=== PATIENT | male | born 1950 | race Caucasian/White ===

== ENCOUNTER 2020-03-19 09:48 | Inpatient (IN) ==
--- NOTE | 2020-03-03 19:40 | PAT Medication Instructions ---
Medication Instructions Date of Service March 03, 2020 Home Medications aspirin [Aspir-81] 81 mg PO QAM atorvastatin 10 mg PO PM celecoxib [Celebrex] 200 mg PO QAM diltiazem HCl 180 mg PO QAM fenofibrate nanocrystallized 145 mg PO PM fluticasone propionate [Flonase Allergy Relief] 1 spray INTRANASAL BID glucos sul 2PGj-gtd-cecop-C-Mn [Glucosamine Chondroitin] 1 cap PO BID Centrum Men] 1 tab PO QAM omega 3-dwn-omc-fish oil [Fish Oil] 1 cap PO PM omeprazole magnesium [Prilosec OTC] 20 mg PO QAM triamterene-hydrochlorothiazid 1 cap PO QAM vitamin E 1,000 unit PO PM ASK your surgeon for instructions celecoxib [Celebrex] 200 mg PO QAM ASK your prescriber and surgeon aspirin [Aspir-81] 81 mg PO QAM STOP taking 2 weeks before surgery (or as soon as possible if surgery is within 2 weeks) glucos sul 9HGv-uhn-veild-C-Mn [Glucosamine Chondroitin] 1 cap PO BID omega 8-ris-ivd-fish oil [Fish Oil] 1 cap PO PM vitamin E 1,000 unit PO PM STOP taking 48 hours before surgery fenofibrate nanocrystallized 145 mg PO PM DO NOT take the morning of surgery Centrum Men] 1 tab PO QAM triamterene-hydrochlorothiazid 1 cap PO QAM Take morning of surgery With a small sip of water, OTHERWISE NOTHING TO EAT OR DRINK AFTER MIDNIGHT: diltiazem HCl 180 mg PO QAM fluticasone propionate [Flonase Allergy Relief] 1 spray INTRANASAL BID omeprazole magnesium [Prilosec OTC] 20 mg PO QAM Take evening before surgery atorvastatin 10 mg PO PM fluticasone propionate [Flonase Allergy Relief] 1 spray INTRANASAL BID Other Notes If you have any questions please call us at [phone] or [phone] or [phone] or [phone]
--- NOTE | 2020-03-04 09:36 | Anesthesiology Consultation ---
Date of Service March 04, 2020 Assessment & Plan (1) Encounter for pre-operative examination: Per PAT assessment on 03/04: Travel screen- Visited family in [facility] (+ social distance). No known COVID-19 positive contacts. No current COVID-19 related symptoms. No hx of COVID-19 testing in past 30 days. Surgeon arranging preop COVID testing. Chart Review Chart Review: Acceptable Risk for Surgery and Patient seen in Pre Admission Testing Teaching & Discussion Pre-Anesthesia Teaching/Discussion Notes: Instructed NPO after midnight before surgery,except medications with 15 cc of water. Medication instructions provided according to the PAT guidelines. History Surgery Operation Date: 03/19/20 11:25 Proposed Procedures p L4-S1 Decompression Fusion, Spinal Cord Monitoring - Adriel Zavala DO Height/Weight Height: 5 ft 8 in Weight: 101.7 kg Allergies Allergy/AdvReac Type Severity Reaction Status Date / Time latex Allergy Unknown RASH Verified 02/26/20 09:50 oxycodone AdvReac Nausea Verified 02/26/20 10:09 Medications Home Medications Medication Instructions Recorded Confirmed Last Taken aspirin [Aspir-81] 81 mg PO QAM 02/26/20 02/26/20 Unknown atorvastatin 10 mg PO PM 02/26/20 02/26/20 Unknown celecoxib [Celebrex] 200 mg PO QAM 02/26/20 02/26/20 Unknown diltiazem HCl 180 mg PO QAM 02/26/20 02/26/20 Unknown fenofibrate nanocrystallized 145 mg PO PM 02/26/20 02/26/20 Unknown fluticasone propionate [Flonase 1 spray INTRANASAL BID 02/26/20 02/26/20 Unknown Allergy Relief] glucos sul 8PFu-bku-dmfog-C-Mn 1 cap PO BID 02/26/20 02/26/20 Unknown [Glucosamine Chondroitin] mv,Ca,lgw-dvps-LW-lycopene 1 tab PO QAM 02/26/20 02/26/20 Unknown [Centrum Men] omega 4-anf-cry-fish oil [Fish Oil] 1 cap PO PM 02/26/20 02/26/20 Unknown omeprazole magnesium [Prilosec OTC] 20 mg PO QAM 02/26/20 02/26/20 Unknown triamterene-hydrochlorothiazid 1 cap PO QAM 02/26/20 02/26/20 Unknown vitamin E 1,000 unit PO PM 02/26/20 02/26/20 Unknown Past Medical History Medical History Degenerative disc disease GERD (gastroesophageal reflux disease) controlled Hiatal hernia Hyperlipidemia Hypertension Obesity Osteoarthritis Sleep apnea no device Throat disorder small "red spot" that ENT evaluated 2 yrs ago> benign Exercise / Class Metabolic Activity II 4-5 Yardwork/Stairs/Walk up hill Past Family History Family History Father Diabetes Mother Diabetes Sister Diabetes Sister Diabetes Past Surgical History Surgical History History of cardiac cath early s= no stents History of carpal tunnel release bilat History of colonoscopy History of esophagogastroduodenoscopy (EGD) History of repair of rotator cuff right History of tooth extraction History of total knee replacement bilat Hx of bilateral cataract extraction Past Anesthesia History No Hx of Anesthesia Complications and No Family Hx of Anesthesia Complications (except father: post-op hallucinations) History of PONV No Hx of PONV and No Hx of Motion Sickness Social History Smoking Status: Former smoker Do You Dip or Chew Tobacco: No Smoking End Date: Quit 1985 Hx Alcohol Use: Yes Alcohol type: beer alcohol intake frequency: a few times a month Hx Substance Use: No substance use type: does not use Review of Systems + chronic, dry cough unchanged x years r/t allergies. Patient denies chest pain, shortness of breath, dyspnea on exertion, fever, chills, wheezing, palpitations. Physical Exam Vital Signs VITALS BP 126/80 P 62 TEMP 98.4 SP02 96%RA RESP 16 PHYSICAL Full neck and c-spine range of motion. Full TMJ range of motion. TMD 3 finger breaths Mallampati Score 2 Dentition: missing molar, + caps on molars Lungs: clear throughout to auscultation Cardiac: regular rate and rhythm, no murmurs noted Spine: normal Carotid arteries: negative bruit Extremities: no edema Testing Laboratory Results 03/04/20 09:55 03/04/20 09:55 PT 11.0 Seconds (9.0-12.0) 03/04/20 09:55 INR 1.0 (0.9-1.1) 03/04/20 09:55 APTT 25.2 Seconds (21.0-31.0) 03/04/20 09:55 Urine Color Dark Yellow 03/04/20 Unknown Urine Appearance Clear (Clear) 03/04/20 Unknown Urine pH 7.5 (4.5-7.5) 03/04/20 Unknown Ur Specific [place] 1.023 (1.000-1.030) 03/04/20 Unknown Urine Protein Negative (Negative) 03/04/20 Unknown Urine Glucose (UA) Negative (Negative) 03/04/20 Unknown Urine Ketones Negative (Negative) 03/04/20 Unknown Urine Nitrite Negative (Negative) 03/04/20 Unknown Ur Leukocyte Esterase Negative (Negative) 03/04/20 Unknown Blood Type A Positive 03/04/20 09:55 Antibody Screen NEGATIVE 03/04/20 09:55 Electrocardiogram Date: 03/04/20 SB at 53bpm. LAD. LVH with QRS widening. Chest X-Ray Date: 03/04/20 Findings: + NAD
--- NOTE | 2020-03-04 10:38 | XRay Report ---
XR chest Pre-admission PA/Lat CLINICAL HISTORY: pat preoperative COMPARISON STUDY: 07/13/2010 FINDINGS: The bones soft tissues and hemidiaphragms are normal. The cardiomediastinal silhouette is n ormal. The lungs are clear. The pulmonary vasculature is normal. IMPRESSION: Negative chest. ACT 112: Negative or not required by law. The above report was generated using voice recognition software. It may contain grammatical, syntax or spelling errors. Electronically signed by: Sam Gamble M.D. 03/04/2020 10:37 AM
[2020-03-04 11:09] LABS: Appearance Urine Clear (Clear); Bilirubin Urine Negative (Negative); Blood Urine Negative (Negative); Color Urine Dark Yellow; Glucose Urine UA Negative (Negative); Ketones Urine Negative (Negative); Leukocyte Esterase Urine Negative (Negative); Nitrite Urine Negative (Negative); Protein Urine Negative (Negative); Specific Gravity Urine 1.023 (1.000-1.030); Urobilinogen Urine Negative (Negative); pH Urine 7.5 (4.5-7.5)
[2020-03-04 11:10] LABS: Basophils # (auto) 0.03 K/uL (0-0.2); Basophils % (auto) 0.5 %; Eosinophils # (auto) 0.27 K/uL (0-0.5); Eosinophils % (auto) 4.5 %; Hematocrit (blood only) 47.9 % (42-52); Hemoglobin 16.3 g/dL (14.0-18.0); Immature Granulocytes # (auto) 0.02 K/uL (0.00-0.02); Immature Granulocytes % (auto) 0.3 %; Lymphocytes # (auto) 1.77 K/uL (1.2-3.4); Lymphocytes % (auto) 29.4 %; Mean Corpuscular Hemoglobin 29.7 pg (25-34); Mean Corpuscular Volume 87.4 fL (80-100); Mean Platelet Volume 11.2 fL (7.4-10.4); Monocytes # (auto) 0.76 K/uL (0.11-0.59); Monocytes % (auto) 12.6 %; Neutrophils # (auto) 3.18 K/uL (1.4-6.5); Neutrophils % (auto) 52.7 %; Platelet Count 216 K/uL (130-400); RDW Coefficient of Variation 13.4 % (11.5-14.5); RDW Standard Deviation 43.2 fL (36.4-46.3); Red Blood Count 5.48 M/uL (4.7-6.1); White Blood Count 6.03 K/uL (4.8-10.8)
[2020-03-04 11:17] LABS: BUN Creatinine Ratio 21.9 (10-20); Calcium 9.5 mg/dl (8.5-10.1); Creatinine Clr Calc Pharmacy 77.1 ml/min; Est GFR (African American) 83.2; Est GFR (Non-African American) 71.8; Potassium 4.4 mmol/L (3.5-5.1)
[2020-03-04 11:19] LABS: Partial Thromboplastin Ratio 0.9; Partial Thromboplastin Time 25.2 Seconds (21.0-31.0)
--- NOTE | 2020-03-04 15:36 | Electrocardiogram Report ---
Test Reason : Blood Pressure : / mmHG Vent. Rate : 053 BPM Atrial Rate : 053 BPM P-R Int : 180 ms QRS Dur : 148 ms QT Int : 428 ms P-R-T Axes : 048 -47 -05 degrees QTc Int : 401 ms Sinus bradycardia Left axis deviation Left ventricular hypertrophy with QRS widening Abnormal ECG When compared with ECG of 13-JUL-2010 13:59, Questionable change in QRS duration Confirmed by Jimmy Camacho ([id number]) on 03/04/2020 3:36:14 PM Referred By: Adriel Zavala Confirmed By:Joshua Camacho
[~2020-03-19 09:48] MED LIST: ACETAMINOPHEN 500 MG TAB PO SCH; CEFAZOLIN 2000MG 2,000 MG/15 ML SYR IV SCH; CeleBREX 200 MG CAP PO SCH; GABAPENTIN 300 MG CAP PO SCH; LR 15ML/HR IV SCH
[2020-03-19] MEDS ORDERED: LIDOCAINE HCL 2% 2 ML VIAL/AMP(20MG/ML) INFIL ONE (10:13)
[2020-03-19] MEDS ORDERED: GLYCOPYRROLATE 0.2 MG/ML VIAL ONE (10:13)
[2020-03-19] MEDS ORDERED: NEOSTIGMINE METHYLSULFATE 1 MG/ML 10ML VIAL ONE (10:13)
[2020-03-19] MEDS ORDERED: HYDROmorphone INJ 2 MG/ML SYR/VIAL ONE (10:13)
[2020-03-19] MEDS ORDERED: DEXAMETHASONE SOD INJ 4 MG/ML VIAL ONE (10:13)
[2020-03-19] MEDS ORDERED: PROPOFOL IV EMULSION 10 MG/ML 20 ML VIAL IV ONE (10:13)
[2020-03-19] MEDS ORDERED: ONDANSETRON INJ 2 MG/ML 2 ML VIAL ONE (10:13)
[2020-03-19] MEDS ORDERED: ROCURONIUM BROMIDE 10 MG/ML 5 ML VIAL IV ONE ×2 (10:13→11:56)
[2020-03-19] MEDS ORDERED: MIDAZOLAM HCL 1 MG/ML 2ML VIAL ONE (10:13)
--- NOTE | 2020-03-19 10:44 | History & Physical Bridge Note ---
Date of Service March 19, 2020 History & Physical Bridge Note I have examined the patient, reviewed the History & Physical and in the interval since the performance of the History & Physical I have noted the following changes of clinical significance: no changes noted
--- NOTE | 2020-03-19 10:45 | History & Physical Report ---
Date of Service March 19, 2020 Assessment & Plan (1) Neurogenic claudication due to lumbar spinal stenosis: L4-S1 decompression fusion Present on Admission?: Yes History of Present Illness Chief Complaint: Back and bilateral leg pain Primary Care Provider: Chucky Travis MD This is a 70-year-old male who presents with chronic persistent back and bilateral leg pain. After failing extensive course of nonoperative care is here for surgical invention. Allergies Allergy/AdvReac Type Severity Reaction Status Date / Time latex Allergy Unknown RASH Verified 02/26/20 09:50 oxycodone AdvReac Nausea Verified 02/26/20 10:09 Home Medications Home Medications Medication Instructions Recorded Confirmed Type aspirin [Aspir-81] 81 mg PO QAM 02/26/20 03/19/20 History atorvastatin 10 mg PO PM 02/26/20 03/19/20 History celecoxib [Celebrex] 200 mg PO QAM 02/26/20 03/19/20 History diltiazem HCl 180 mg PO QAM 02/26/20 03/19/20 History fenofibrate nanocrystallized 145 mg PO PM 02/26/20 03/19/20 History fluticasone propionate [Flonase 1 spray INTRANASAL BID 02/26/20 03/19/20 History Allergy Relief] glucos sul 6TWc-pel-xwedf-C-Mn 1 cap PO BID 02/26/20 03/19/20 History [Glucosamine Chondroitin] mv,Ca,kkj-xyxz-QV-lycopene 1 tab PO QAM 02/26/20 03/19/20 History [Centrum Men] omega 1-chv-lad-fish oil [Fish Oil] 1 cap PO PM 02/26/20 03/19/20 History omeprazole magnesium [Prilosec OTC] 20 mg PO QAM 02/26/20 03/19/20 History triamterene-hydrochlorothiazid 1 cap PO QAM 02/26/20 03/19/20 History vitamin E 1,000 unit PO PM 02/26/20 03/19/20 History Past Med/Surg History Medical History Degenerative disc disease GERD (gastroesophageal reflux disease) controlled Hiatal hernia Hyperlipidemia Hypertension Obesity Osteoarthritis Sleep apnea no device Throat disorder small "red spot" that ENT evaluated 2 yrs ago> benign Surgical History History of cardiac cath early s= no stents History of carpal tunnel release bilat History of colonoscopy History of esophagogastroduodenoscopy (EGD) History of repair of rotator cuff right History of tooth extraction History of total knee replacement bilat Hx of bilateral cataract extraction Family History Father Diabetes Mother Diabetes Sister Diabetes Sister Diabetes Social History (System 02/14/20 @ 07:55 by Heather Cuellar) Smoking Status: Former smoker Smoking End Date: Quit 1985; Second Hand Exposure: Yes (in past); Do You Dip or Chew Tobacco: No; Tobacco Cessation Education Requested by Patient: No Hx Alcohol Use: Yes Alcohol type: beer Hx Substance Use: No Preferred Language: Yakut Communication Ability: Effective Welfare Project Manager Required: No Beliefs That Will Affect Care: None Current Living Situation: Spouse Other Information That Helps Us Care for You: No Feels Safe at Home: Yes Safety Concerns: Feels Safe At This Time Physical Exam Physical Exam: Patient is alert and oriented neurologically intact. Heart regular rate and rhythm. Lungs clear to auscultation. Results & Data Vital Signs (Past 12 Hours) Vital Signs Temp Pulse Resp BP Pulse Ox 03/19/20 10:29 36.7 C 57 L 18 140/74 97
[2020-03-19] MEDS ORDERED: BACITRACIN INJ 50,000 UNIT VIAL ONE (10:56)
[2020-03-19] MEDS ORDERED: BUPIVACAINE/EPINEPHRINE 0.25% 1:200,000 30 ML VIAL ONE (10:56)
[2020-03-19] MEDS ORDERED: ATROPINE SULFATE 0.1 MG/ML 10ML SYR IV PRN (11:03)
[2020-03-19] MEDS ORDERED: ONDANSETRON INJ 2 MG/ML 2 ML VIAL IV PRN ×2 (11:03→15:43)
[2020-03-19] MEDS ORDERED: ePHEDrine sulfate 50 MG/ML SYR ONE (11:50)
[2020-03-19] MEDS ORDERED: FLOSEAL HEMOSTATIC MATRIX 10ML TOP ONE (13:38)
--- NOTE | 2020-03-19 13:44 | Operative Report ---
Post Operative Report Pre & Post Diagnosis Operation Date: 03/19/20 11:25 Pre-Op Diagnosis: Neurogenic claudication due to lumbar spinal stenosis L4-S1 Spondylolisthesis L5-S1 Obesity Post-Op Diagnosis: Same I identified the patient and participated in the time-out.: Yes Procedure Operation Date: 03/19/20 11:25 Actual Procedures #1 lumbar decompression with bilateral medial facetectomies and foraminotomies L3-4, L4-5 and L5-S1. #2 posterior spinal fusion L4-5 L5-S1 peer #3 placed a posterior instrumentation L4-5 L5-S1. #4 interbody fusion L4-5 L5-S1. #5 placement peek cage 13 x 22 mm at L4-5 and 9 x 22 mm at L5-S1. #6 placement locally harvested morselized autograft in the posterior lateral gutters. #7 placement infuse collagen sponge plan master graft in the posterior lateral gutters and ostial amp and interbody space. Surgeon Adriel Zavala, Publishing Editor Shaylee Gay Estimated Blood Loss 400 Findings See Below Patient is 5 foot 8 inches tall weighing over 100 kg with a BMI in excess of 34. The patient's body habitus did add significant technical difficulty requiring her deepest retractors and longest instruments in order to perform this procedure. This at least 50% increase to the operative time. Specimens None Indications This is a 62-year-old male presents with above-mentioned diagnosis after failing extensive course of nonoperative care is here for the above-mentioned procedure. Description of Procedure Patient was met with identified informed consent obtained. Patient was then taken to the operative suite underwent an patient placed in a prone position the Tin table on top of the Ryan frame. All bony prominences well-padded eyes inspected to ensure no external pressure placed upon them. This point the lumbar spine was prepped and draped in normal sterile fashion. Sharp dissection with assistance of Bovie cautery was performed down to and exposing the lamina and transverse processes of L4-L5 and sacral ala bilaterally. From a caudal cephalad fashion complete laminectomy of L5 L4 and L3 was performed including bilateral medial facetectomies and foraminotomies. Obvious bilateral pars defect at L5 was noted. Severe neural compression addressed. Pedicle screws were then placed in L4-L5 and S1 levels bilaterally with assistance of fluoroscopy and appropriately sized aliyah placed. By way of a trans-foramen approach on the left complete discectomy of L5-S1 was performed endplates curetted to subcortical bleeding bone and 9 x 22 mm peek cage filled with osteo- bone graft tapped in position. Then proceeded to L4-[address] of a transforaminal approach and left complete discectomy performed endplates curetted to subcortical bleeding bone and 13 x 22 mm peek cage filled with osteo-bone graft tapped position. The rods were then locked into final position bilaterally. The transverse processes of L4-L5 and the sacral ala burred to subcortical bleeding bone. Infuse collagen sponge mass graft local autograft placed in the posterior lateral gutters. 15 round NICKO drain inserted. The i ncision was then closed with 1 Vicryl the fascia 2-0 Vicryl subcutaneously and 4 Monocryl for final skin closure. Steri-Strip sterile dressings placed. Patient waken taken to PACU stable addition. Please note spinal cord monitoring was utilized that the procedure no changes noted. Lastly Shaylee Gay was present at the entire procedure involved the patient positioning complex portions of the roy rgery and final skin closure. I attest to the content of the Intraoperative Record and any orders documented therein. Any exceptions are noted below.
--- NOTE | 2020-03-19 13:51 | Fluoroscopy Report ---
FL lumbar spine 2-3V CLINICAL HISTORY: L4-S1 DECOMPRESSION AND FUSION COMPARISON STUDY: None FLUOROSCOPY TIME: 24 seconds. NUMBER OF FLUOROSCOPIC IMAGES: 2 FINDINGS: 2 intraoperative fluoroscopic spot images reveal postsurgical changes of L4-5, and L5-S1 di scectomies interbody fusion with posterior pedicle screw fixation. There is a grade 1 spondylolisthes is of L5 and S1. Curvilinear radiopaque densities projected over the posterior disc spaces, are felt to represent surgical patties. IMPRESSION: Postsurgical changes of an L4-S1 spinal decompression and fusion. ACT 112: Negative or not required by law. Electronically signed by: Colt Chung M.D. 03/19/2020 1:50 PM
[2020-03-19] MEDS: HYDROmorphone INJ 1 MG/ML SYRINGE IV PRN ×10 (14:15→15:00)
--- NOTE | 2020-03-19 14:58 | Anesthesiology Progress Note ---
Date of Service March 19, 2020 Anesthesia Post Procedure Vital Signs Vital Signs: Temp Pulse Pulse Resp BP BP Pulse Ox 03/19/20 14:45 36.6 C 71 16 128/75 96 03/19/20 14:35 68 16 130/69 95 03/19/20 14:25 83 16 121/67 95 03/19/20 14:15 77 16 124/70 95 03/19/20 14:05 65 16 120/63 95 03/19/20 13:59 37.0 C 63 16 112/58 L 95 03/19/20 10:29 36.7 C 57 L 18 140/74 97 Transfer of Care Handoff Completed per policy Notes Mental Status: alert / awake / arousable Patient Amnestic to Procedure: Yes Nausea / Vomiting: adequately controlled Pain: adequately controlled Airway Patency, RR, SpO2: stable & adequate BP & HR: stable & adequate Hydration State: stable & adequate Anesthetic Complications: no major complications apparent
[2020-03-19] MEDS ORDERED: ALUMINUM/MAGNESIUM SUSP 30 ML UDC PO PRN (15:43)
[2020-03-19] MEDS ORDERED: TRAMADOL HCL 50 MG TABLET PO PRN (15:43)
[2020-03-19] MEDS ORDERED: SOD PHOSPHATE/SOD BIPHOSPHATE ENEMA 132 ML BTL PR PRN (15:43)
[2020-03-19] MEDS ORDERED: ONDANSETRON 4 MG OD TAB PO PRN (15:43)
[2020-03-19] MEDS ORDERED: NALOXONE HCL 0.4 MG/1 ML VIAL/CARP IV PRN (15:43)
[2020-03-19] MEDS ORDERED: HYDROmorphone INJ 0.5 MG/0.5 ML SYR IV PRN (15:43)
[2020-03-19] MEDS ORDERED: DO NOT ADMINISTER FLU VACCINE PRN (15:43)
[2020-03-19] MEDS ORDERED: ACETAMINOPHEN 500 MG TAB PO PRN (15:43)
[2020-03-19] MEDS ORDERED: HYDROmorphone INJ 1 MG/ML SYRINGE IV PRN (15:43)
[2020-03-19] MEDS ORDERED: HYDROCODONE/ACETAMOPHEN 5/325MG TAB PO PRN (15:43)
[2020-03-19] MEDS ORDERED: FAMOTIDINE 20 MG TAB PO PRN (15:43)
[2020-03-19] MEDS ORDERED: PROMETHAZINE HCL 12.5 MG in SODIUM CHLORIDE 0.9% 50 ML IV PRN (15:43)
[2020-03-19] MEDS ORDERED: METOCLOPRAMIDE HCL INJ 5 MG/ML 2 ML VIAL IV PRN (15:43)
[2020-03-19] MEDS ORDERED: DO NOT ADMINISTER PNEUMOCOCCAL VACCINE PRN (15:43)
[2020-03-19] MEDS ORDERED: bisacodyL 10 MG SUPP PR PRN (15:43)
[2020-03-19] MEDS ORDERED: LORazepam 0.5 MG/1 ML VIAL IV PRN (15:43)
[2020-03-19] MEDS ORDERED: MAGNESIUM HYDROXIDE SUSP 30 ML UDC PO PRN (15:43)
[2020-03-19] MEDS ORDERED: LORazepam 0.5 MG TAB PO PRN (15:43)
[2020-03-19] MEDS ORDERED: ACETAMINOPHEN 1,000 MG/100 ML VIAL IV PRN (15:43)
[2020-03-19] MEDS: SODIUM CHLORIDE 0.9% 1000ML 1,000 ML IV SCH (16:20)
--- NOTE | 2020-03-19 17:54 | Hospitalist Consultation ---
Date of Consultation March 19, 2020 Assessment & Plan (1) Neurogenic claudication due to lumbar spinal stenosis: - POD#0 L4-S1 decompression and fusion by Dr. Zavala - activity and wound care orders as per ortho - pain control with bowel regimen - PT/OT - monitor H/H for acute blood loss anemia and transfuse blood products PRN - EBL 400 cc (2) Hypertension: -BP controlled, continue diltiazem (3) DVT prophylaxis: -Teds/SCDs as per spine Ortho Thank you for this consultation. We will follow the patient with you during their hospital stay. You can reach a member of the [facility] Hospitalist Team 14/03 via pager @ [phone]. Supervising Physician Co-Signing Physician Notes Pt seen and examined by me, care coordinated with Mary Carmen Monroy NP. Please see her notes for further detail above. Pt is a 70-year-old male with HTN, dyslipidemia, OA, obesity, sleep apnea who is status post L4-S1 decompression and fusion today with Dr. Zavala. Postoperatively, the patient is doing well. He reports his pain is well controlled. No chest pain or shortness of breath. Denies lightheadedness and dizziness. No abdominal pain or nausea. He is alert and oriented, answering questions appropriately. Lungs are clear to auscultation bilaterally, without any wheezing, rhonchi or crackles. Heart sounds regular. Abdomen is soft, nontender, nondistended, obese, positive bowel sounds. Patient moves all extremities spontaneously. SCDs placed. Skin is warm, dry. Patient reports better sensation on the right leg, less sensation on the left leg. Romo catheter is in place draining clear yellow urine. Normal vital signs. Continue to monitor vital signs, monitor for acute blood loss anemia. Mt Christianson MD History of Present Illness Reason for Consultation: Postop medical management Requesting Physician: Dr. Zavala Attending Physician: Dr. Christianson History of Present Illness 70-year-old male with PMH HTN, dyslipidemia, and other problems listed below who is status post L4-S1 decompression and fusion today with Dr. Zavala. Postoperatively, the patient is doing well. He reports his pain is well contro lled. He reports the numbness and tingling to his lower extremities resolved. No chest pain or shortness of breath. Denies lightheadedness and dizziness. No abdominal pain or nausea. Romo catheter is in place draining clear yellow urine. Allergies Allergy/AdvReac Type Severity Reaction Status Date / Time latex Allergy Unknown RASH Verified 02/26/20 09:50 oxycodone AdvReac Nausea Verified 02/26/20 10:09 Home Medications Home Medications Medication Instructions Recorded Confirmed Type aspirin [Aspir-81] 81 mg PO QAM 02/26/20 03/19/20 History atorvastatin 10 mg PO PM 02/26/20 03/19/20 History celecoxib [Celebrex] 200 mg PO QAM 02/26/20 03/19/20 History diltiazem HCl 180 mg PO QAM 02/26/20 03/19/20 History fenofibrate nanocrystallized 145 mg PO PM 02/26/20 03/19/20 History fluticasone propionate [Flonase 1 spray INTRANASAL DAILY 02/26/20 03/19/20 History Allergy Relief] glucos sul 7YAs-tnz-bzbif-C-Mn 1 cap PO BID 02/26/20 03/19/20 History [Glucosamine Chondroitin] mv,Ca,lna-pkta-LC-lycopene 1 tab PO QAM 02/26/20 03/19/20 History [Centrum Men] omega 1-rkv-ipi-fish oil [Fish Oil] 1 cap PO PM 02/26/20 03/19/20 History omeprazole magnesium [Prilosec OTC] 20 mg PO QAM 02/26/20 03/19/20 History triamterene-hydrochlorothiazid 1 cap PO QAM 02/26/20 03/19/20 History vitamin E 1,000 unit PO PM 02/26/20 03/19/20 History Patient History Medical History Degenerative disc disease GERD (gastroesophageal reflux disease) controlled Hiatal hernia Hyperlipidemia Hypertension Obesity Osteoarthritis Sleep apnea no device Throat disorder small "red spot" that ENT evaluated 2 yrs ago> benign Surgical History History of cardiac cath early = no stents History of carpal tunnel release bilat History of colonoscopy History of esophagogastroduodenoscopy (EGD) History of repair of rotator cuff right History of tooth extraction History of total knee replacement bilat Hx of bilateral cataract extraction Family History Father Diabetes Mother Diabetes Sister Diabetes Sister Diabetes Social History Smoking Status: Former smoker Smoking End Date: Quit 1985; Second Hand Exposure: Yes (in past); Do You Dip or Chew Tobacco: No; Tobacco Cessation Education Requested by Patient: No Hx Alcohol Use: Yes Alcohol type: beer Hx Substance Use: No Preferred Language: Dutch Communication Ability: Effective Traffic Control Supervisor Required: No Beliefs That Will Affect Care: None Current Living Situation: Spouse Other Information That Helps Us Care for You: No Feels Safe at Home: Yes Safety Concerns: Feels Safe At This Time Review of Systems Review of Systems: ROS per HPI, all other systems reviewed and negative Physical Exam Constitutional: WD/WN, vitals as above Eyes: PERRL, conjunctivae normal, anicteric sclerae ENMT: external ear and nose normal, oropharynx normal Respiratory: normal respiratory effort, lungs clear to auscultation Cardiovascular: Rate/Rhythm: regular rate and regular rhythm Vessels: normal peripheral pulses Extremities: no edema Gastrointestinal (Abdomen): normal bowel sounds, soft, nontender, no hepatosplenomegaly Musculoskeletal: no cyanosis or clubbing, extremities motor strength 5/5 S/p back surgery, pedal pushes and pull strong bilaterally Skin: no rashes, warm and dry Neurologic: PERRL, EOMI, accommodation nl, no face palsy, no dysarthria Psychiatric: A+Ox3, euthymic affect Results & Data Results & Data ([facility]) Vital Signs (Past 12 Hours) Vital Signs Temp Pulse Pulse Resp BP BP Pulse Ox 03/19/20 17:39 79 16 111/68 97 03/19/20 16:36 36.6 C 81 16 124/74 93 03/19/20 16:10 36.9 C 73 17 130/75 96 03/19/20 15:35 37 C 70 18 130/77 96 03/19/20 15:15 36.6 C 62 16 120/81 98 03/19/20 15:05 73 16 132/72 98 03/19/20 14:55 71 16 134/79 95 03/19/20 14:45 36.6 C 71 16 128/75 96 03/19/20 14:35 68 16 130/69 95 03/19/20 14:25 83 16 121/67 95 03/19/20 14:15 77 16 124/70 95 03/19/20 14:05 65 16 120/63 95 03/19/20 13:59 37.0 C 63 16 112/58 L 95 03/19/20 10:29 36.7 C 57 L 18 140/74 97
[2020-03-19] MEDS: CEFAZOLIN 2000MG 2,000 MG/15 ML SYR IV SCH (18:31)
[2020-03-19] MEDS ORDERED: Nursing to Pharmacy Communication SCH (20:30)
[2020-03-19] MEDS: ATORVASTATIN 10 MG TAB PO SCH (20:36)
[2020-03-19] MEDS: FENOFIBRATE NANOCRYSTALLIZED 145 MG TABLET PO SCH (20:36)
[2020-03-19] MEDS: DOCUSATE SODIUM/SENNA 50/8.6MG TAB PO SCH (20:36)
[2020-03-19] MEDS ORDERED: FLUTICASONE PROPIONATE NA SPR 16 GM BTL SCH (21:00)
[2020-03-20] MEDS: CEFAZOLIN 2000MG 2,000 MG/15 ML SYR IV SCH (01:18)
[2020-03-20] MEDS: SODIUM CHLORIDE 0.9% 1000ML 1,000 ML IV SCH (02:20)
[2020-03-20] MEDS: POLYETHYLENE (MIRALAX) 17 GM PACK PO SCH ×4 (05:42→23:59)
[2020-03-20 06:04] LABS: Hematocrit (blood only) 37.6 % (42-52); Hemoglobin 13.1 g/dL (14.0-18.0); Immature Granulocytes # (auto) 0.04 K/uL (0.00-0.02); Immature Granulocytes % (auto) 0.3 %; Lymphocytes # (auto) 0.87 K/uL (1.2-3.4); Lymphocytes % (auto) 7.6 %; Mean Corpuscular Hemoglobin 30.1 pg (25-34); Mean Corpuscular Hgb Conc 34.8 g/dL (32-36); Mean Corpuscular Volume 86.4 fL (80-100); Mean Platelet Volume 10.8 fL (7.4-10.4); Monocytes # (auto) 1.02 K/uL (0.11-0.59); Monocytes % (auto) 8.9 %; Neutrophils # (auto) 9.56 K/uL (1.4-6.5); Neutrophils % (auto) 83.2 %; Platelet Count 185 K/uL (130-400); RDW Coefficient of Variation 13.4 % (11.5-14.5); RDW Standard Deviation 42.5 fL (36.4-46.3); Red Blood Count 4.35 M/uL (4.7-6.1); White Blood Count 11.49 K/uL (4.8-10.8)
[2020-03-20 06:44] LABS: BUN Creatinine Ratio 21.1 (10-20); Calcium 8.3 mg/dl (8.5-10.1); Creatinine Clr Calc Pharmacy 83.3 ml/min; Est GFR (African American) 91.4; Est GFR (Non-African American) 78.9; Potassium 4.2 mmol/L (3.5-5.1)
--- NOTE | 2020-03-20 08:06 | Orthopedic Progress Note ---
Date of Service March 20, 2020 Assessment & Plan (1) Neurogenic claudication due to lumbar spinal stenosis: This time continue physical therapy advance his bowel regiment anticipate discharge home in the next few days. Present on Admission?: Yes Admission and Anticipated Discharge Date Admission Date: March 19, 2020 Subjective Back pain controlled leg pain improved. Physical Exam Physical Exam: Patient is good strength testing appears comfortable. Results & Data ([facility]) Vital Signs (Past 12 Hours) Vital Signs Temp Pulse Resp BP Pulse Ox 03/20/20 02:40 37.1 C 78 16 128/68 95 03/19/20 23:16 37.0 C 71 16 136/70 94 03/19/20 20:21 36.7 C 83 17 131/69 96
[2020-03-20] MEDS: TRIAMTERENE/HCTZ 37.5/25MG CAP PO SCH (09:24)
[2020-03-20] MEDS: PANTOprazole 40 MG TAB PO SCH (09:24)
[2020-03-20] MEDS: ASPIRIN 81 MG ECTAB PO SCH (09:25)
[2020-03-20] MEDS: dilTIAZem HCL 180 MG CAPCR PO SCH (09:25)
[2020-03-20] MEDS: FLUTICASONE PROPIONATE NA SPR 16 GM BTL SCH (09:26)
[2020-03-20] MEDS: DEXAMETHASONE SOD PHOSPHATE 8 MG in SYRINGE 0 ML IV SCH (09:30)
--- NOTE | 2020-03-20 13:37 | Hospitalist Progress Note ---
Date of Service March 20, 2020 Assessment & Plan (1) Neurogenic claudication due to lumbar spinal stenosis: - POD#1 L4-S1 decompression and fusion by Dr. Wells -No post op complication - pain control with bowel regimen - Continue PT/OT - monitor H/H for acute blood loss anemia and transfuse blood products PRN -Hgb 13.1 today (2) Hypertension: -BP controlled, continue diltiazem Anemia Possible due to acute blood loss anemia Hgb dropped from 16 to 13.1 Continue monitor CBC (3) DVT prophylaxis: -Teds/SCDs as per spine Ortho Thank you for this consultation. We will follow the patient with you during their hospital stay. You can reach a member of the [facility] Hospitalist Team 14/03 via pager @ [phone]. Admission and Anticipated Discharge Date Admission Date: March 19, 2020 Subjective Pt was seen and examined Sitting in chair with no distress Pt said that pain control He said that he walked around with therapy Denies any chest pain, palpitation, dizziness and SOB Physical Exam Physical Exam: General- No acute distress Head- atraumatic Eyes- PERRL, EOMI, ENT- oropharynx clear Neck- supple, no JVD Lungs- clear to auscultation Heart- regular rhythm; no murmur Abdomen- normal bowel sounds, soft, nontender Extremities- no calf tenderness Neuro- alert, oriented x 3; PERRL, EOMI; no facial palsy; no dysarthria Skin- warm & dry Results & Data Results & Data ([facility]) Vital Signs (Past 12 Hours) Vital Signs Temp Pulse Resp BP Pulse Ox 03/20/20 12:04 37.2 C 68 16 133/76 96 03/20/20 08:00 36.6 C 67 16 138/77 93 03/20/20 02:40 37.1 C 78 16 128/68 95
[2020-03-20] MEDS: DOCUSATE SODIUM/SENNA 50/8.6MG TAB PO SCH (20:15)
[2020-03-20] MEDS: FENOFIBRATE NANOCRYSTALLIZED 145 MG TABLET PO SCH (20:15)
[2020-03-20] MEDS: ATORVASTATIN 10 MG TAB PO SCH (20:15)
[2020-03-21] MEDS: POLYETHYLENE (MIRALAX) 17 GM PACK PO SCH (06:00)
[2020-03-21 06:18] LABS: Hematocrit (blood only) 42.7 % (42-52); Hemoglobin 14.2 g/dL (14.0-18.0); Mean Corpuscular Hemoglobin 29.4 pg (25-34); Mean Corpuscular Hgb Conc 33.3 g/dL (32-36); Mean Corpuscular Volume 88.4 fL (80-100); Mean Platelet Volume 10.7 fL (7.4-10.4); Platelet Count 216 K/uL (130-400); RDW Coefficient of Variation 13.7 % (11.5-14.5); RDW Standard Deviation 44.2 fL (36.4-46.3); Red Blood Count 4.83 M/uL (4.7-6.1); White Blood Count 16.14 K/uL (4.8-10.8)
[2020-03-21] MEDS: FLUTICASONE PROPIONATE NA SPR 16 GM BTL SCH (08:53)
[2020-03-21] MEDS: DEXAMETHASONE SOD PHOSPHATE 8 MG in SYRINGE 0 ML IV SCH (08:53)
[2020-03-21] MEDS: ASPIRIN 81 MG ECTAB PO SCH (08:53)
[2020-03-21] MEDS: PANTOprazole 40 MG TAB PO SCH (08:54)
[2020-03-21] MEDS: dilTIAZem HCL 180 MG CAPCR PO SCH (08:54)
[2020-03-21] MEDS: TRIAMTERENE/HCTZ 37.5/25MG CAP PO SCH (08:54)
--- NOTE | 2020-03-21 11:25 | Hospitalist Progress Note ---
Date of Service March 21, 2020 Assessment & Plan (1) Neurogenic claudication due to lumbar spinal stenosis: - POD#2 L4-S1 decompression and fusion by Dr. Wells -No post op complication - pain control with bowel regimen - Continue PT/OT - monitor H/H for acute blood loss anemia and transfuse blood products PRN -Hgb 14.2 today (2) Hypertension: -BP controlled, continue diltiazem Anemia Possible due to acute blood loss anemia Hgb 14.2 today stable (3) DVT prophylaxis: -Teds/SCDs as per spine Ortho Thank you for this consultation. We will follow the patient with you during their hospital stay. You can reach a member of the [facility] Hospitalist Team 14/03 via pager @ [phone]. Admission and Anticipated Discharge Date Admission Date: March 19, 2020 Subjective Pt was seen and examined Sitting in chair with no distress Pt said that he feels OK He said that he walked around Denies any chest pain, palpitation, dizziness and SOB Physical Exam Physical Exam: General- No acute distress Head- atraumatic Eyes- PERRL, EOMI, ENT- oropharynx clear Neck- supple, no JVD Lungs- clear to auscultation Heart- regular rhythm; no murmur Abdomen- normal bowel sounds, soft, nontender Extremities- no calf tenderness Neuro- alert, oriented x 3; PERRL, EOMI; no facial palsy; no dysarthria Skin- warm & dry Results & Data Results & Data ([facility]) Vital Signs (Past 12 Hours) Vital Signs Temp Pulse Resp BP Pulse Ox 03/21/20 08:09 36.9 C 63 18 145/83 H 96
--- NOTE | 2020-03-21 12:08 | Discharge Summary ---
Date of Service March 21, 2020 Admission HPI Per Admitting Provider This is a 70-year-old male who presents with chronic persistent back and bilateral leg pain. After failing extensive course of nonoperative care is here for surgical invention. Principal Diagnosis Lumbar spinal stenosis with neurogenic claudication Discharge Data Allergies Allergy/AdvReac Type Severity Reaction Status Date / Time latex Allergy Unknown RASH Verified 02/26/20 09:50 oxycodone AdvReac Nausea Verified 02/26/20 10:09 Consultations 03/19/20 15:43 Consult Case Management - Discharge Planning Routine Consult Hospitalist Routine Procedures Performed Operation Date: 03/19/20 11:25 Actual Procedures p L4-S1 Decompression Fusion with bone morphogenic protein and osteoamp allograft, Spinal Cord Monitoring(Not Applicable) - Adriel Zavala DO Ordered Studies 03/19/20 11:25 FL fluoroscopy <1hr Routine FL lumbar spine 2-3V Routine Hospital Course (1) Neurogenic claudication due to lumbar spinal stenosis: Patient underwent lumbar decompression fusion tolerated this well was taken to orthopedic for postoperative. Postop day 1 he was up and ambulating progressed to postop day #2 on postop day 3 NICKO drain decreased probably. Excellent strength testing. Pain well controlled. Subsequently discharged home. Discharge orders instructions from the chart for further review. Total Time Total Time Spent Total Time Spent (In Minutes): 20 minutes Discharge Plan Discharge Items Patient Disposition: Home - Self-Care Reason For Visit: LUMBAR SPINAL STENOSIS WO NEUROGENIC CLAUDICATION Discharge Diagnosis: Lumbar spinal stenosis with neurogenic claudication spondylolisthesis L5-S1 Activity: As commented below Non-emergency contact: Primary Care Provider Call non-emergency contact if: you have any medication questions Follow-up/Referrals: Chucky Travis MD [Primary Care Provider] - Diet: Regular Addtl Attending Provider Instructions: ACTIVITY RECOMMENDATIONS: SELF CARE INSTRUCTIONS AFTER THORACIC/LUMBAR FUSIONS 1. You may walk to your tolerance. It is good exercise for your legs and back. Expect some back and intermittent leg aches and pains. 2. You may perform "counter-top" level activities (make a sandwich, taylor with a project, etc.). 3. No bending or lifting of more than 10 pounds or back twisting of any nature (roll like a log when turning in bed). 4. You may ride in a car for 20-30 minutes at a time. No driving until after your first visit with your doctor. 5. Frequent changes of position and restricting sitting to 30 minutes at a time will help limit the amount of back spasms and stiffness you may experience. 6. You may discontinue the use of ambulatory aids (cane, crutches, etc.) once your strength and confidence allow. 7. You may dressmaking teacher the shower and let water strike your incision when you arrive home at least once daily. Do not take a tub bath, sit in a hot tub or go into a swimming pool until after your first recheck in the office. SPECIAL CARE INSTRUCTIONS: VERY IMPORTANT TO READ AND REVIEW A. Your surgical incision has been closed with a cosmetic suture under the skin that will dissolve in about 6 weeks. In 14 days, you can use a pair of clean scissors and cut the suture that is left outside of the skin at the ends of your incision. 1. The small skin tapes can be removed 7 days after surgery if they have not fallen off by that point. 2. You may keep the wound open to air as much as possible to promote healing after post-op day number 5 unless told otherwise by your doctor. 3. If you think the wound looks like it is becoming infected (redness or worsening drainage) and/or you are experiencing fever, chill or worsening back pain and muscle spasms, contact the office so that we may evaluate you as soon as possible. B. Complications are uncommon, but please contact us if you have any signs or symptoms of: 1. wound infection (fever higher than 102.5 degrees F, redness, separation of wound, drainage, or increasing pain from the incision) 2. blood clots in legs (pain, swelling, redness and warmth in legs) 3. urinary tract infection (fever higher than 102.5 degrees F, burning upon urination or increased frequency of urination) 4. nerve problems (inability to walk on your toes or heels, numbness, loss of bowel or bladder control) 5. any other symptoms that concern you C. Please call the office at if you have any concerns or questions about your operation or recovery. D. No smoking! Smoking drastically decreases the chance of a solid fusion. E. Do not take any anti-inflammatory medications (Indocin, Advil, Motrin, Aspirin, Naprosyn, etc.) as these may inhibit the chance of a solid fusion. Tylenol is okay to take for pain. MANAGING PAIN AFTER SPINAL SURGERY 1. Narcotic medication is intended for short-term use and will be provided for surgical pain. Surgical pain usually lasts for a period of 4-6 weeks. Narcotic medication includes Percocet, Vicodin, Darvocet, Tylenol #3 or Lortab. 2. Longer-term pain is more appropriately treated with non-narcotic medication such as Tylenol ES. 3. Muscle spasm is not appropriately treated with narcotics. Muscle relaxers such as Soma, Flexeril or Skelaxin can be used along with Tylenol ES. 4. Remember that we all live with some "aches and pains". This is not unusual or uncommon after an injury or as we get older. a. Back pain is expected and may include muscle spasms for 4 to 6 weeks after surgery. The pain should gradually improve. If the pain worsens for no apparent reason, please contact the office. b. Intermittent leg pain may also be experienced and should not be concerned about unless it worsens for no apparent reason. If so, please contact the office. 5. We will provide appropriate medication within the normal guidelines of their prescribed use. We will also be very cautious and aware of potential abuse and extended duration of patients' medication needs. a. Pain medications are for your comfort and to assist with sleep and rest so that the tissue can heal. They are not provided in order to return to normal activity and should not be used through the day. To do so or worsening pain at night can result from ongoing tissue damage and development of tolerance to the prescribed medicine. 6. Please allow 2-3 days to process refills. Prescriptions will not be mailed but must be picked up at the office. FOLLOW UP VISIT: Keep your scheduled follow-up appointment. Any questions, please call the office at . Pending Studies at Discharge: No Stand-Alone Forms: My [facility] DailyLook, Opioid Pain Management, Smoking Cessation Medications and DC Order Prescriptions: New hydrocodone-acetaminophen 5-325 mg tablet See Rx Instructions .ROUTE .COMPLEX PRN (Reason: pain) Qty: 20 RF: 0 tramadol 50 mg tablet 50 mg PO Q6H PRN (Reason: pain, moderate) Qty: 20 RF: 0 Continued celecoxib [Celebrex] 200 mg Capsule 200 mg PO QAM RF: 0 atorvastatin 10 mg Tablet 10 mg PO PM RF: 0 diltiazem HCl 180 mg Capsule,Extended Release 24hr 180 mg PO QAM RF: 0 aspirin [Aspir-81] 81 mg Tablet,Delayed Release (Dr/Ec) 81 mg PO QAM RF: 0 triamterene-hydrochlorothiazid 37.5-25 mg Capsule 1 cap PO QAM RF: 0 fluticasone propionate [Flonase Allergy Relief] 50 mcg/actuation [place],Suspension 1 spray INTRANASAL DAILY RF: 0 omeprazole magnesium [Prilosec OTC] 20 mg Tablet,Delayed Release (Dr/Ec) 20 mg PO QAM RF: 0 fenofibrate nanocrystallized 145 mg Tablet 145 mg PO PM RF: 0 Centrum Men 8 mg iron- 200 mcg-600 mcg Tablet 1 tab PO QAM RF: 0 vitamin E 1,000 unit Capsule 1,000 unit PO PM RF: 0 omega 7-ult-emd-fish oil [Fish Oil] 1,000 mg (120 mg-180 mg) Capsule 1 cap PO PM RF: 0 Glucosamine Chondroitin 550-30-1 mg Capsule 1 cap PO BID RF: 0 Discharge Orders: Discharge Order (Routine); Ordered 03/21/20 Ordered By: Adriel Sanders/Other Patient Handouts: How Your Back Works, Spinal Fusion Admission Data Admit Date/Time: 03/19/20 14:26 Attending Provider: Adriel Zvaala Admit Provider: Adriel Zavala Primary Care Provider: Chucky Travis Other Providers: Rusty Swenson ; Louis Hung
== END 2020-03-21 12:46 | disposition home or self-care (01) | DRG 454 ==
LOC: ASU 09:48 → MERGE 11:25 → 3E 14:26